=== PATIENT | female | born 2000 | race Caucasian/White ===

== ENCOUNTER 2022-10-05 08:01 | Emergency (ER) | payer OTHER, SELFPAY | END 2022-10-05 08:02 | disposition left against medical advice (07) | PROVIDERS: PCP Family Medicine | DX: Z53.21 Procedure and treatment not carried out due to patient leaving prior to being seen by health care provider (principal) | CPT/HCPCS: 99199 ==

== ENCOUNTER 2022-10-05 08:20 | Emergency (ER) | payer OTHER, SELFPAY ==
--- NOTE | ~2022-10-05 | US_ITS ---
Pelvic ultrasound. Clinical History: First trimester , pelvic pain Technique: Realtime transabdominal and transvaginal scanning of the pelvis was performed. Color flow Doppler and Doppler spectral analysis were performed. Findings: The uterus is anteverted. There is a probable early intrauterine gestational sac, with edouard mated gestational age of 5 weeks 2 days based on average sac diameter of 5 mm. No visible pole or yolk sac at this time, commensurate with the early gestational age. The right ovary measures 1.7 x 2.7 x 2.1 cm. No significant right ovarian or adnexal mass is seen. The left ovary measures 2.2 x 2.7 x 1.9 cm. No significant left ovarian or adnexal mass is seen. Vascular flow present in both ovaries on Doppler spectral analysis. There is no evidence of free fluid in the cul de sac. Impression: Probable early intrauterine gestational sac with estimated gestational age of 5 weeks 2 days based on their sac diameter. No visible pole or yolk sac, commensurate with the early gestational age. Reviewed, dictated and finalized at [facility]. Impression: Probable early intrauterine gestational sac with estimated gestational age of 5 weeks 2 days based on their sac diameter. No visible pole or yolk sac, c ommensurate with the early gestational age.
[2022-10-05 08:28] VITALS: BP 138/84; PULSE 124; RESP 15; TEMP 36.8; O2SAT 100
--- NOTE | 2022-10-05 09:15 | ED.ABDPAIN ---
HPI - Abdominal Pain General Chief Complaint: Abdominal Pain Stated Complaint: 5 weeks , requesting ultrasound Time Seen by Provider: 10/05/22 08:25 History of Present Illness HPI narrative: Patient is a 22-year-old who presents ER with left lower abdominal pain. Reports she has been having pain for 4 to 5 days. Its in the lower pelvic region and the inguinal region. Its worse with movement. No vaginal bleeding or discharge. She was seen at [facility] in [place] last night. They are unable to perform an ultrasound and told her to find a place that excepted her insurance. She arrived today with a prescription for an ultrasound but it was not signed so she checked into the ER. Her [facility] is Dr. Crisostomo in [place]. Patient had beta-hCG of approximately 1400. Related Data Allergies Allergy/AdvReac Type Severity Reaction Status Date / Time No Known Allergies Allergy Verified 10/05/22 08:38 Review of Systems Constitutional: Constitutional: Denies chills, Denies fatigue and Denies fever(s) ENT: Denies nasal congestion and Denies sore throat Cardiovascular: Cardiovascular: Denies chest pain, Denies rapid heart rate and Denies radiating jaw, neck or arm pain Respiratory: Respiratory: Denies cough and Denies dyspnea Gastrointestinal: Gastrointestinal: Denies abdominal pain, Denies nausea and Denies vomiting Genitourinary: Genitourinary: Denies abnormal vaginal bleeding, Denies nocturia, Denies dysuria, Reports pelvic pain and Denies vaginal discharge PMFSH Past Medical History Medical History (Updated 10/05/22 @ 10:56 by Nik Gibbs MD) Healthy female adult Surgical History Surgical History (Updated 10/05/22 @ 09:16 by Nik Gibbs MD) No pertinent past surgical history Exam Narrative: GENERAL: Well-appearing, well-nourished, and in no acute distress. HEAD: Normocephalic, atraumatic. ENT: Mucous membranes moist. CHEST: Clear to auscultation. No respiratory distress. HEART: Regular rate and rhythm. Normal peripheral pulses. ABDOMEN: Soft, nontender, nondistended. There is mild discomfort in the low lateral abdominal wall at the insertion into the pelvis. May represent muscle strain but is definitely the pain she is having. There is no inguinal hernia. EXTREMITIES: Normal range of motion. No edema. SKIN: Warm, dry, no rash. NEURO: Alert and oriented x3. PSYCH: Normal mood and affect. Course Course Emergency Course: Patient informed of results. Patient is not tachycardic. Her ultrasound shows an IUP. Suspect symptoms are muscular in nature and recommend Tylenol. Patient verbalized understanding. Vital Signs Vital signs: Vital Signs Temperature 98.3 F 10/05/22 08:28 Pulse Rate 124 H 10/05/22 08:28 Respiratory Rate 15 10/05/22 08:28 Blood Pressure 138/84 10/05/22 08:28 Pulse Oximetry 100 10/05/22 08:28 Temperature 98.3 F 10/05/22 08:28 Pulse Rate 124 H 10/05/22 08:28 Respiratory Rate 15 10/05/22 08:28 Blood Pressure 138/84 10/05/22 08:28 Pulse Oximetry 100 10/05/22 08:28 MDM - Abdominal Pain Imaging Data Radiologist's impression: ITS Impressions Obstetrics Ultrasound 10/05/22 09:49 Impression: Probable early intrauterine gestational sac with estimated gestational age of 5 weeks 2 days based on their sac diameter. No visible pole or yolk sac, commensurate with the early gestational age. Discharge Plan Discharge Clinical Impression: Abdominal wall strain Patient Disposition: Home, Self-Care Condition: Stable Instructions: Muscle Strain (ED) Additional Instructions: Take Tylenol for your pain. Your ultrasound shows a 5-week 2-day intrauterine gestational sac. Return the ER if you are having vaginal bleeding, you develop severe lower abdominal pain, you lose consciousness, you have additional concerns. Follow-up/Referrals: Andressa,Selin Matthew MD [Primary Care Provider] - 1 Week
== END 2022-10-05 11:08 | disposition home or self-care (01) ==
PROVIDERS: Emergency Provider Emergency Medicine; PCP Family Medicine
DX: O9A.211 Injury, poisoning and certain other consequences of external causes complicating pregnancy, first trimester (principal); S39.011A Strain of muscle, fascia and tendon of abdomen, initial encounter; Z3A.01 Less than 8 weeks gestation of pregnancy; X58.XXXA Exposure to other specified factors, initial encounter
CPT/HCPCS: 76801; 76817; 99284